=== PATIENT | female | born 1955 | race Two or more races ===

== ENCOUNTER 2016-09-07 12:13 | Inpatient (IN) | payer OTHER ==
[~2016-09-07] VITALS: Ht 160 cm; Wt 115.7 kg
[2016-09-07] MEDS ORDERED: [UNRECOGNIZED DRUG - REMARK] (12:23)
[2016-09-07 12:57] LABS: BASOPHILS # (AUTO) 0.1 /CMM (0.0-0.2); BASOPHILS % (AUTO) 0.7 % (0.0-2.0); DIFF TOTAL % 100 %; EOSINOPHILS # (AUTO) 0.4 /CMM (0.0-0.7); EOSINOPHILS % (AUTO) 4.2 % (0.0-6.0); HEMATOCRIT 37 % (33-45); HEMOGLOBIN 11.8 g/dL (11.5-14.8); LYMPHOCYTES # (AUTO) 1.7 /CMM (0.8-4.8); LYMPHOCYTES % (AUTO) 19.3 % (20.0-44.0); MEAN CORPUSCULAR HEMOGLOBIN 30 PG (26.0-33.0); MEAN CORPUSCULAR HGB CONC 32 g/dl (31.0-36.0); MEAN CORPUSCULAR VOLUME 94 fL (82-100); MONOCYTES # (AUTO) 0.9 /CMM (0.1-1.30); MONOCYTES % (AUTO) 10.1 % (2.0-12.0); NEUTROPHILS # (AUTO) 5.9 /CMM (1.8-8.9); NEUTROPHILS % (AUTO) 65.7 % (43.0-81.0); PLATELET COUNT (AUTO) 427 /CMM (150-450); RED BLOOD CELL COUNT(AUTO) 3.93 MIL/uL (4.0-5.2)
[2016-09-07 13:08] LABS: ANION GAP 8 (5-14); CALCIUM, SERUM 8.1 mg/dL (8.5-10.1); CARBON DIOXIDE 30 mmol/L (21-32); CHLORIDE 97 mmol/L (98-107); CREATININE 1.1 mg/dL (0.6-1.3); GFR 50 mL/min (>60); GLUCOSE 74 mg/dL (74-106); POTASSIUM 4.9 mmol/L (3.5-5.1); SODIUM SERUM 130 mmol/L (136-145); UREA NITROGEN, BLOOD 37 mg/dL (7-18)
[2016-09-07 13:12] LABS: INR 1.12 (0.87-1.13); PROTHROMBIN TIME 11.8 SECS (9.5-12.7)
[2016-09-07 13:16] LABS: TROPONIN I < 0.017 ng/mL (0.00-0.056)
[2016-09-07 13:21] LABS: ALANINE AMINOTRANSFERASE 27 U/L (12-78); ASPARTATE AMINOTRANSFERASE 32 U/L (15-37); BILIRUBIN,DIRECT 0.3 mg/dL (0.0-0.2); BILIRUBIN,TOTAL 0.7 mg/dL (0.2-1.0); INDIRECT BILIRUBIN 0.4 mg/dL (0.0-1.1); TOTAL PROTEIN, SERUM 7.5 g/dL (6.4-8.2)
[2016-09-07] MEDS ORDERED: FUROSEMIDE 40 MG/4 ML VIAL ONE (13:30)
[2016-09-07] MEDS ORDERED: FUROSEMIDE 40 MG/4 ML VIAL IV ONE (13:30)
[2016-09-07] MEDS ORDERED: IV SET PRIMARY PUMP SET 1 EA INFUS.SET MC ONE (13:36)
[2016-09-07] MEDS ORDERED: CEFTRIAXONE 1GM BAG (ER ONLY) 50 ML IV ONE ×2 (13:36→14:00)
[2016-09-07] MEDS ORDERED: ASPI-991 PO (13:44)
[2016-09-07] MEDS ORDERED: ATEN25TA PO (13:44)
[2016-09-07] MEDS ORDERED: AZITHROMYCIN 500 MG in IV D5W 250 ML IV ONE (14:00)
[2016-09-07 16:00] VITALS: BP 191/91
[2016-09-07] MEDS ORDERED: ZOLPIDEM TARTRATE 5 MG TABLET PO PRN (16:30)
[2016-09-07] MEDS ORDERED: MAG HYDROX/AL HYDROX/SIMETH 30 ML UDC PO PRN (16:30)
[2016-09-07] MEDS ORDERED: HYDROCODONE/APAP 5/325MG 1 EACH TABLET PO PRN (16:30)
[2016-09-07] MEDS ORDERED: ONDANSETRON HCL/PF 4 MG/2 ML VIAL IVP PRN (16:30)
[2016-09-07] MEDS ORDERED: Z GUARD REMEDY 2 OZ OINT TP PRN (16:30)
[2016-09-07] MEDS ORDERED: MAGNESIUM HYDROXIDE 30 ML UDC PO PRN (16:30)
[2016-09-07] MEDS ORDERED: DEXTROSE 50%-WATER 50 ML DISP.SYRIN IV PRN (18:00)
[2016-09-07] MEDS: DOCUSATE SODIUM 100 MG CAPSULE PO SCH (18:13)
[2016-09-07] MEDS: FUROSEMIDE 40 MG/4 ML VIAL IV SCH (18:14)
[2016-09-07] MEDS: ENOXAPARIN SODIUM 40 MG/0.4 ML DISP.SYRIN SQ SCH (18:14)
[2016-09-07] MEDS: BLOOD SUGAR DIAGNOSTIC 1 EACH STRIP IN SCH ×2 (18:14→21:27)
[2016-09-07 18:36] VITALS: BP 155/56
[2016-09-07 20:00] VITALS: BP 122/72
[2016-09-08] VITALS: BP 151/69
[2016-09-08] MEDS: ACETAMINOPHEN 325 MG TABLET PO PRN ×2 (00:36→21:05)
[2016-09-08 04:34] VITALS: BP 144/63
[2016-09-08] MEDS: BLOOD SUGAR DIAGNOSTIC 1 EACH STRIP IN SCH ×4 (06:43→21:03)
[2016-09-08 07:42] LABS: BASOPHILS % (AUTO) 0.5 % (0.0-2.0); DIFF TOTAL % 100 %; EOSINOPHILS # (AUTO) 0.3 /CMM (0.0-0.7); EOSINOPHILS % (AUTO) 3.8 % (0.0-6.0); HEMATOCRIT 36 % (33-45); HEMOGLOBIN 11.5 g/dL (11.5-14.8); LYMPHOCYTES # (AUTO) 1.2 /CMM (0.8-4.8); LYMPHOCYTES % (AUTO) 15.1 % (20.0-44.0); MEAN CORPUSCULAR HEMOGLOBIN 30 PG (26.0-33.0); MEAN CORPUSCULAR HGB CONC 32 g/dl (31.0-36.0); MEAN CORPUSCULAR VOLUME 95 fL (82-100); MONOCYTES # (AUTO) 0.8 /CMM (0.1-1.30); MONOCYTES % (AUTO) 9.8 % (2.0-12.0); NEUTROPHILS # (AUTO) 5.8 /CMM (1.8-8.9); NEUTROPHILS % (AUTO) 70.8 % (43.0-81.0); PLATELET COUNT (AUTO) 394 /CMM (150-450); RED BLOOD CELL COUNT(AUTO) 3.81 MIL/uL (4.0-5.2); WHITE BLOOD COUNT (AUTO) 8.3 K/uL (4.3-11.0)
[2016-09-08] MEDS: PANTOPRAZOLE 40 MG TABLET.DR PO SCH (07:53)
[2016-09-08 08:00] VITALS: BP 147/85
[2016-09-08] MEDS ORDERED: BUMETANIDE INJ 8 MG in IV NS 0.9% 48 ML IV ONE (08:00)
[2016-09-08 08:07] LABS: CALCIUM, SERUM 8.4 mg/dL (8.5-10.1); CREATININE 1.1 mg/dL (0.6-1.3); PHOSPHORUS 4.9 mg/dL (2.5-4.9); POTASSIUM 4.8 mmol/L (3.5-5.1)
[2016-09-08 08:29] LABS: THYROID STIMULATING HORMONE 25.551 uIU/mL (0.358-3.74)
[2016-09-08] MEDS: DOCUSATE SODIUM 100 MG CAPSULE PO SCH ×2 (08:48→17:29)
[2016-09-08] MEDS: ASPIRIN EC 81 MG TABLET.DR PO SCH (08:48)
[2016-09-08] MEDS: ATENOLOL 25 MG TABLET PO SCH (08:48)
[2016-09-08] MEDS: FUROSEMIDE 40 MG/4 ML VIAL IV SCH ×2 (08:48→17:29)
[2016-09-08] MEDS ORDERED: IV SET PRIMARY PUMP SET 1 EA INFUS.SET MC ONE (08:56)
[2016-09-08] MEDS ORDERED: IV NS 0.9% 250 ML IV ONE (08:57)
[2016-09-08] MEDS ORDERED: SECONDARY IV SET 1 EA INFUS.SET MC ONE ×2 (08:57→13:57)
[2016-09-08] MEDS ORDERED: LEVO500T15 PO (10:19)
[2016-09-08] MEDS ORDERED: HYDR-552 PO (10:19)
[2016-09-08] MEDS ORDERED: ATEN50TA PO (10:20)
[2016-09-08] MEDS: CEFTRIAXONE 1 G in IV D5W 50 ML IV SCH (13:59)
[2016-09-08 16:00] VITALS: BP 147/84
[2016-09-08 16:31] LABS: KETONES,URINE NEGATIVE (NEGATIVE); LEUKOCYTE ESTERASE ,URINE NEGATIVE (NEGATIVE); PH,URINE 5.5 (5.0-8.0)
[2016-09-08 16:32] LABS: ADD UA MICROSCOPIC YES
[2016-09-08 16:37] LABS: ADD URINE CULTURE NO; WBC,URINE 0-2 /HPF (0-3)
[2016-09-08] MEDS: ENOXAPARIN SODIUM 40 MG/0.4 ML DISP.SYRIN SQ SCH (17:29)
[2016-09-08 20:00] VITALS: BP_SYST 102; BP_SYST 147; BP_DIAS 102; BP_DIAS 59
[2016-09-09] MEDS: BLOOD SUGAR DIAGNOSTIC 1 EACH STRIP IN SCH ×4 (05:26→21:20)
[2016-09-09 06:34] LABS: BASOPHILS % (AUTO) 0.6 % (0.0-2.0); DIFF TOTAL % 100 %; EOSINOPHILS # (AUTO) 0.4 /CMM (0.0-0.7); EOSINOPHILS % (AUTO) 4.8 % (0.0-6.0); HEMATOCRIT 33 % (33-45); HEMOGLOBIN 10.6 g/dL (11.5-14.8); LYMPHOCYTES # (AUTO) 1.6 /CMM (0.8-4.8); LYMPHOCYTES % (AUTO) 17.6 % (20.0-44.0); MEAN CORPUSCULAR HEMOGLOBIN 30 PG (26.0-33.0); MEAN CORPUSCULAR HGB CONC 32 g/dl (31.0-36.0); MEAN CORPUSCULAR VOLUME 94 fL (82-100); MONOCYTES # (AUTO) 0.9 /CMM (0.1-1.30); MONOCYTES % (AUTO) 9.7 % (2.0-12.0); NEUTROPHILS % (AUTO) 67.3 % (43.0-81.0); PLATELET COUNT (AUTO) 379 /CMM (150-450); RED BLOOD CELL COUNT(AUTO) 3.51 MIL/uL (4.0-5.2); WHITE BLOOD COUNT (AUTO) 8.9 K/uL (4.3-11.0)
[2016-09-09 06:44] LABS: ALANINE AMINOTRANSFERASE 24 U/L (12-78); ALBUMIN 2.6 g/dL (3.4-5.0); ANION GAP 6 (5-14); ASPARTATE AMINOTRANSFERASE 23 U/L (15-37); BILIRUBIN,TOTAL 0.4 mg/dL (0.2-1.0); CALCIUM, SERUM 8.1 mg/dL (8.5-10.1); CARBON DIOXIDE 30 mmol/L (21-32); CHLORIDE 98 mmol/L (98-107); CREATININE 1.2 mg/dL (0.6-1.3); GFR 46 mL/min (>60); GLUCOSE 116 mg/dL (74-106); PHOSPHORUS 4.7 mg/dL (2.5-4.9); POTASSIUM 3.6 mmol/L (3.5-5.1); SODIUM SERUM 131 mmol/L (136-145); TOTAL PROTEIN, SERUM 6.6 g/dL (6.4-8.2); UREA NITROGEN, BLOOD 38 mg/dL (7-18)
[2016-09-09 06:48] LABS: TROPONIN I < 0.017 ng/mL (0.00-0.056)
[2016-09-09 08:00] VITALS: BP 155/70
[2016-09-09] MEDS: POTASSIUM CHLORIDE 20 MEQ TAB.PRT.SR PO SCH (09:05)
[2016-09-09] MEDS: PANTOPRAZOLE 40 MG TABLET.DR PO SCH (09:06)
[2016-09-09] MEDS: DOCUSATE SODIUM 100 MG CAPSULE PO SCH ×2 (09:06→16:03)
[2016-09-09] MEDS: ASPIRIN EC 81 MG TABLET.DR PO SCH (09:06)
[2016-09-09] MEDS: FUROSEMIDE 40 MG/4 ML VIAL IV SCH ×2 (09:10→16:03)
[2016-09-09] MEDS: ATENOLOL 25 MG TABLET PO SCH (09:10)
[2016-09-09 10:29] LABS: VIT D, 25-HYDROXY 17.1 ng/mL (30.0-100.0)
[2016-09-09] MEDS: INSULIN REGULAR, HUMAN 100 UNIT/ML 3 ML VIAL SQ PRN ×3 (11:35→21:32)
[2016-09-09] MEDS: CEFTRIAXONE 1 G in IV D5W 50 ML IV SCH (13:24)
[2016-09-09 16:00] VITALS: BP 131/75
[2016-09-09] MEDS: GUAIFENESIN/CODEINE 10 ML UDC PO PRN ×2 (16:03→21:20)
[2016-09-09] MEDS: ENOXAPARIN SODIUM 40 MG/0.4 ML DISP.SYRIN SQ SCH (16:04)
[2016-09-09 20:00] VITALS: BP 128/71
[2016-09-10] MEDS: BLOOD SUGAR DIAGNOSTIC 1 EACH STRIP IN SCH ×4 (06:38→22:06)
[2016-09-10] MEDS: INSULIN REGULAR, HUMAN 100 UNIT/ML 3 ML VIAL SQ PRN ×4 (06:43→22:10)
[2016-09-10 08:00] VITALS: BP 137/67
[2016-09-10] MEDS: ATENOLOL 25 MG TABLET PO SCH (08:18)
[2016-09-10] MEDS: ASPIRIN EC 81 MG TABLET.DR PO SCH (08:18)
[2016-09-10] MEDS: PANTOPRAZOLE 40 MG TABLET.DR PO SCH (08:18)
[2016-09-10] MEDS: DOCUSATE SODIUM 100 MG CAPSULE PO SCH ×2 (08:19→16:52)
[2016-09-10] MEDS: POTASSIUM CHLORIDE 20 MEQ TAB.PRT.SR PO SCH (08:19)
[2016-09-10 08:39] LABS: BASOPHILS # (AUTO) 0.1 /CMM (0.0-0.2); BASOPHILS % (AUTO) 1.4 % (0.0-2.0); DIFF TOTAL % 100 %; EOSINOPHILS # (AUTO) 0.5 /CMM (0.0-0.7); EOSINOPHILS % (AUTO) 5.2 % (0.0-6.0); HEMATOCRIT 33 % (33-45); HEMOGLOBIN 10.7 g/dL (11.5-14.8); LYMPHOCYTES # (AUTO) 1.6 /CMM (0.8-4.8); LYMPHOCYTES % (AUTO) 17.9 % (20.0-44.0); MEAN CORPUSCULAR HEMOGLOBIN 30 PG (26.0-33.0); MEAN CORPUSCULAR HGB CONC 32 g/dl (31.0-36.0); MEAN CORPUSCULAR VOLUME 94 fL (82-100); MONOCYTES # (AUTO) 0.7 /CMM (0.1-1.30); MONOCYTES % (AUTO) 8.4 % (2.0-12.0); NEUTROPHILS % (AUTO) 67.1 % (43.0-81.0); PLATELET COUNT (AUTO) 383 /CMM (150-450); RED BLOOD CELL COUNT(AUTO) 3.56 MIL/uL (4.0-5.2); WHITE BLOOD COUNT (AUTO) 8.9 K/uL (4.3-11.0)
[2016-09-10] MEDS: FUROSEMIDE 40 MG/4 ML VIAL IV SCH ×2 (09:07→16:56)
[2016-09-10 09:19] LABS: ALBUMIN 2.8 g/dL (3.4-5.0); BILIRUBIN,TOTAL 0.6 mg/dL (0.2-1.0); CALCIUM, SERUM 8.4 mg/dL (8.5-10.1); CREATININE 1.1 mg/dL (0.6-1.3); PHOSPHORUS 4.5 mg/dL (2.5-4.9); POTASSIUM 4.4 mmol/L (3.5-5.1); TOTAL PROTEIN, SERUM 6.9 g/dL (6.4-8.2)
[2016-09-10] MEDS ORDERED: IV NS 0.9% 250 ML IV ONE (12:05)
[2016-09-10] MEDS ORDERED: IV SET PRIMARY PUMP SET 1 EA INFUS.SET MC ONE (12:05)
[2016-09-10] MEDS: CEFTRIAXONE 1 G in IV D5W 50 ML IV SCH (12:09)
[2016-09-10 16:00] VITALS: BP 158/59
[2016-09-10] MEDS: ENOXAPARIN SODIUM 40 MG/0.4 ML DISP.SYRIN SQ SCH (17:05)
[2016-09-10 20:19] VITALS: BP 159/71
[2016-09-11] MEDS: ACETAMINOPHEN 325 MG TABLET PO PRN ×2 (00:18→17:27)
[2016-09-11] MEDS: INSULIN REGULAR, HUMAN 100 UNIT/ML 3 ML VIAL SQ PRN ×4 (06:36→21:39)
[2016-09-11] MEDS: BLOOD SUGAR DIAGNOSTIC 1 EACH STRIP IN SCH ×4 (06:40→21:38)
[2016-09-11 07:24] LABS: BASOPHILS % (AUTO) 0.4 % (0.0-2.0); DIFF TOTAL % 100 %; EOSINOPHILS # (AUTO) 0.5 /CMM (0.0-0.7); EOSINOPHILS % (AUTO) 5.3 % (0.0-6.0); HEMATOCRIT 33 % (33-45); HEMOGLOBIN 10.6 g/dL (11.5-14.8); LYMPHOCYTES # (AUTO) 1.6 /CMM (0.8-4.8); LYMPHOCYTES % (AUTO) 18.2 % (20.0-44.0); MEAN CORPUSCULAR HEMOGLOBIN 30 PG (26.0-33.0); MEAN CORPUSCULAR HGB CONC 32 g/dl (31.0-36.0); MEAN CORPUSCULAR VOLUME 95 fL (82-100); MONOCYTES # (AUTO) 0.8 /CMM (0.1-1.30); MONOCYTES % (AUTO) 8.5 % (2.0-12.0); NEUTROPHILS % (AUTO) 67.6 % (43.0-81.0); PLATELET COUNT (AUTO) 384 /CMM (150-450); RED BLOOD CELL COUNT(AUTO) 3.48 MIL/uL (4.0-5.2); WHITE BLOOD COUNT (AUTO) 8.9 K/uL (4.3-11.0)
[2016-09-11 07:48] LABS: CALCIUM, SERUM 8.4 mg/dL (8.5-10.1); CREATININE 1.1 mg/dL (0.6-1.3); PHOSPHORUS 3.9 mg/dL (2.5-4.9); POTASSIUM 4.7 mmol/L (3.5-5.1)
[2016-09-11 08:00] VITALS: BP 122/74
[2016-09-11] MEDS: DOCUSATE SODIUM 100 MG CAPSULE PO SCH ×2 (08:36→17:07)
[2016-09-11] MEDS: ATENOLOL 25 MG TABLET PO SCH (08:37)
[2016-09-11] MEDS: ASPIRIN EC 81 MG TABLET.DR PO SCH (08:37)
[2016-09-11] MEDS: POTASSIUM CHLORIDE 20 MEQ TAB.PRT.SR PO SCH (08:37)
[2016-09-11] MEDS: PANTOPRAZOLE 40 MG TABLET.DR PO SCH (08:38)
[2016-09-11] MEDS: FUROSEMIDE 40 MG/4 ML VIAL IV SCH ×2 (08:38→17:07)
[2016-09-11] MEDS ORDERED: ATEN25TA PO (10:05)
[2016-09-11] MEDS ORDERED: FURO-144 PO (10:07)
[2016-09-11] MEDS ORDERED: POTA-10 PO (10:07)
[2016-09-11 10:44] LABS: *SPE ALBUMIN 3.1 g/dL (2.9-4.4)
[2016-09-11] MEDS: CEFTRIAXONE 1 G in IV D5W 50 ML IV SCH (14:15)
[2016-09-11 15:54] VITALS: BP 138/61
[2016-09-11] MEDS: ENOXAPARIN SODIUM 40 MG/0.4 ML DISP.SYRIN SQ SCH (17:08)
[2016-09-11 20:00] VITALS: BP 132/53
[2016-09-11] MEDS ORDERED: LIDOCAINE 1%-EPI 1:100,000 20 ML VIAL TP ONE (20:30)
[2016-09-11] MEDS ORDERED: SILVER NITRATE APPLICATOR 1 EA BOX TP ONE ×2 (20:30)
[2016-09-11 21:10] VITALS: BP 124/57
[2016-09-12] MEDS: BLOOD SUGAR DIAGNOSTIC 1 EACH STRIP IN SCH ×4 (06:19→21:03)
[2016-09-12] MEDS: INSULIN REGULAR, HUMAN 100 UNIT/ML 3 ML VIAL SQ PRN ×4 (06:23→21:10)
[2016-09-12 08:00] VITALS: BP 152/74
[2016-09-12 08:26] VITALS: BP 152/74
[2016-09-12] MEDS: POTASSIUM CHLORIDE 20 MEQ TAB.PRT.SR PO SCH (08:41)
[2016-09-12] MEDS: DOCUSATE SODIUM 100 MG CAPSULE PO SCH ×2 (08:41→16:31)
[2016-09-12] MEDS: ATENOLOL 25 MG TABLET PO SCH (08:41)
[2016-09-12] MEDS: PANTOPRAZOLE 40 MG TABLET.DR PO SCH (08:41)
[2016-09-12] MEDS: FUROSEMIDE 40 MG/4 ML VIAL IV SCH ×2 (08:42→16:31)
[2016-09-12] MEDS: ASPIRIN EC 81 MG TABLET.DR PO SCH (08:42)
[2016-09-12] MEDS: GUAIFENESIN/CODEINE 10 ML UDC PO PRN (10:06)
[2016-09-12] MEDS ORDERED: LIDOCAINE 1%-EPI 1:100,000 50 ML VIAL IJ ONE (10:30)
[2016-09-12 12:00] VITALS: BP 135/91
[2016-09-12] MEDS ORDERED: ALBUTEROL FS 2.5 MG/3 ML VIAL.NEB NEB PRN (12:00)
[2016-09-12] MEDS: CEFTRIAXONE 1 G in IV D5W 50 ML IV SCH (12:18)
[2016-09-12] MEDS: predniSONE 20 MG TABLET PO SCH (12:25)
[2016-09-12] MEDS ORDERED: SILVER NITRATE APPLICATOR 1 EA BOX TP ONE ×2 (14:30)
[2016-09-12] MEDS ORDERED: POLYVINYL ALCOHOL 15 ML BOTTLE EACHEYE PRN (15:30)
[2016-09-12 16:00] VITALS: BP 139/68
[2016-09-12] MEDS: ENOXAPARIN SODIUM 40 MG/0.4 ML DISP.SYRIN SQ SCH (16:36)
[2016-09-12 20:03] VITALS: BP 166/86
[2016-09-12 20:06] VITALS: BP 166/86
[2016-09-13] MEDS: BLOOD SUGAR DIAGNOSTIC 1 EACH STRIP IN SCH ×2 (05:23→11:41)
[2016-09-13] MEDS: INSULIN REGULAR, HUMAN 100 UNIT/ML 3 ML VIAL SQ PRN ×2 (05:30→11:45)
[2016-09-13 06:45] LABS: BASOPHILS % (AUTO) 0.4 % (0.0-2.0); DIFF TOTAL % 100 %; EOSINOPHILS % (AUTO) 0.3 % (0.0-6.0); HEMATOCRIT 32 % (33-45); HEMOGLOBIN 10.2 g/dL (11.5-14.8); LYMPHOCYTES # (AUTO) 1.1 /CMM (0.8-4.8); LYMPHOCYTES % (AUTO) 14.2 % (20.0-44.0); MEAN CORPUSCULAR HEMOGLOBIN 30 PG (26.0-33.0); MEAN CORPUSCULAR HGB CONC 32 g/dl (31.0-36.0); MEAN CORPUSCULAR VOLUME 95 fL (82-100); MONOCYTES # (AUTO) 0.6 /CMM (0.1-1.30); MONOCYTES % (AUTO) 7.6 % (2.0-12.0); NEUTROPHILS # (AUTO) 6.1 /CMM (1.8-8.9); NEUTROPHILS % (AUTO) 77.5 % (43.0-81.0); PLATELET COUNT (AUTO) 355 /CMM (150-450); RED BLOOD CELL COUNT(AUTO) 3.38 MIL/uL (4.0-5.2); WHITE BLOOD COUNT (AUTO) 7.9 K/uL (4.3-11.0)
[2016-09-13 07:03] LABS: CALCIUM, SERUM 8.4 mg/dL (8.5-10.1); CREATININE 1.3 mg/dL (0.6-1.3); PHOSPHORUS 3.9 mg/dL (2.5-4.9); POTASSIUM 5.1 mmol/L (3.5-5.1)
[2016-09-13 08:00] VITALS: BP 137/65
[2016-09-13] MEDS: ASPIRIN EC 81 MG TABLET.DR PO SCH (08:38)
[2016-09-13] MEDS: predniSONE 20 MG TABLET PO SCH (08:38)
[2016-09-13] MEDS: FUROSEMIDE 40 MG/4 ML VIAL IV SCH (08:38)
[2016-09-13] MEDS: POTASSIUM CHLORIDE 20 MEQ TAB.PRT.SR PO SCH (08:38)
[2016-09-13] MEDS: DOCUSATE SODIUM 100 MG CAPSULE PO SCH (08:38)
[2016-09-13 08:39] VITALS: BP 137/65
[2016-09-13] MEDS: PANTOPRAZOLE 40 MG TABLET.DR PO SCH (08:39)
[2016-09-13] MEDS: ATENOLOL 25 MG TABLET PO SCH (08:39)
[2016-09-13] MEDS ORDERED: INSULIN REGULAR, HUMAN 100 UNIT/ML 10 ML VIAL SQ ONE (12:00)
[2016-09-13] MEDS: CEFTRIAXONE 1 G in IV D5W 50 ML IV SCH (12:18)
[2016-09-13] MEDS ORDERED: INSULIN DETEMIR 100 UNIT/ML CARTRIDGE SQ SCH (22:00)
== END 2016-09-13 16:15 | disposition home health service (06) | DRG 143 ==
LOC: ER 12:15 → TELE 15:09 → MED 09-08 08:08
PROVIDERS: ADMIT Internal Medicine; ATTEND Internal Medicine
PROC: 0JB80ZZ Excision of Abdomen Subcutaneous Tissue and Fascia, Open Approach (ICD-10-PCS; principal; 2016-09-12)
DX: E66.2 Morbid (severe) obesity with alveolar hypoventilation (principal); E43 Unspecified severe protein-calorie malnutrition; K74.60 Unspecified cirrhosis of liver; E11.65 Type 2 diabetes mellitus with hyperglycemia; L03.115 Cellulitis of right lower limb; E87.1 Hypo-osmolality and hyponatremia; Z68.42 Body mass index [BMI] 45.0-49.9, adult; I10 Essential (primary) hypertension; E11.9 Type 2 diabetes mellitus without complications; L03.116 Cellulitis of left lower limb; S31.109A Unspecified open wound of abdominal wall, unspecified quadrant without penetration into peritoneal cavity, initial encounter; X58.XXXA Exposure to other specified factors, initial encounter; Y92.009 Unspecified place in unspecified non-institutional (private) residence as the place of occurrence of the external cause; J98.11 Atelectasis; M79.89 Other specified soft tissue disorders; I87.8 Other specified disorders of veins; R09.02 Hypoxemia; D64.9 Anemia, unspecified; I87.2 Venous insufficiency (chronic) (peripheral)
CPT/HCPCS: 36415; 71010-TC; 80048-TC; 80053-TC; 80061-TC; 80076-TC; 81000-TC; 82306; 82962-TC; 83605-TC; 83735-TC; 83880; 84100-TC; 84155; 84165; 84439-TC; 84443-TC; 84484-TC; 85025-TC; 85730-TC; 87040-TC; 87081-TC; 93307-TC; 97001-TC; 97530-TC; A4216; A4606; A6253; A6402; A6403; J0456; J0696; J1650; J1815; J1940; J3490; J7050; J7060; Z7610